=== PATIENT | female | born 1955 | race Caucasian/White ===

== ENCOUNTER → 2018-04-11 | Outpatient (CLI) | payer MEDICAID ==
[~2018-04-11] MED LIST: BIMA2.5D EACHEYE; CELE200C PO; ESTR0.5T PO; HYDR12.517 PO; LANS15CA60 PO; LOSA25TA25 PO; MEDR2.5T30 PO; METF10002 PO; SULF1TAB24 PO
== END | disposition home or self-care (01) ==
LOC: CFH 15:52
PROVIDERS: ATTEND Family Medicine
DX: Z12.31 Encounter for screening mammogram for malignant neoplasm of breast (principal)
CPT/HCPCS: 77063; 77067

== ENCOUNTER → 2019-05-23 | Outpatient (CLI) | payer MEDICAID | END | disposition home or self-care (01) | LOC: CFH 13:50 | PROVIDERS: ATTEND Specialist | DX: Z12.31 Encounter for screening mammogram for malignant neoplasm of breast (principal) | CPT/HCPCS: 77063; 77067 ==